=== PATIENT | male | born 1975 | race Caucasian/White ===

== ENCOUNTER 2021-05-10 21:54 | Inpatient (IN) | payer BC ==
[~2021-05-10] VITALS: Ht 180.3 cm; Wt 91.0 kg
[2021-05-10] MEDS ORDERED: MAGNESIUM/ALUMINUM HYDROXIDE/SIMETHICONE 30ML UDC PO STA (23:07)
[2021-05-10] MEDS ORDERED: ASPIRIN 81MG TABLET PO ONE (23:15)
[2021-05-10] MEDS ORDERED: NITROGLYCERIN 0.4MG TABLET SL SL PRN (23:15)
[2021-05-10 23:51] LABS: BASOPHILS % 0.8 % (0.0-2.0); HEMATOCRIT. 43.8 % (42.0-52.0); HEMOGLOBIN. 14.8 g/dL (14.0-18.0); LYMPHOCYTES % 34.4 % (20.0-50.0); MEAN CORPUSCULAR HEMOGLOBIN 30.7 pg (28.0-32.0); MEAN CORPUSCULAR VOLUME 90.8 fL (80.0-94.0); MEAN PLATELET VOLUME 7.3 fl (7.4-10.4); MONOCYTES % 9.3 % (2.0-8.0); NEUTROPHILS % 52.5 % (40.0-76.0); PLATELET 296 x1000/uL (130-400); RED BLOOD CELL COUNT 4.83 mill/uL (4.7-6.1); RED CELL DISTRIBUTION WIDTH 13.2 % (11.6-14.6)
[2021-05-10 23:56] LABS: CHLORIDE 104 mEq/L (98-107)
[2021-05-11] MEDS ORDERED: ONDANSETRON HCL 4MG/2ML INJ IV PRN (08:45)
[2021-05-11] MEDS ORDERED: ACETAMINOPHEN 325MG TABLET PO PRN (08:45)
[2021-05-11] MEDS ORDERED: ASPIRIN 81MG TABLET PO SCH (09:00)
[2021-05-11 14:30] VITALS: BP 116/72
== END 2021-05-11 14:30 | disposition home or self-care (01) | DRG 206 ==
LOC: ER 21:54 → MICUSO 05-11 02:25 → EDBEDREQ 05-11 02:26 → EDBEDREQTM 05-11 02:26
PROVIDERS: ADMIT Internal Medicine; ATTEND Internal Medicine
DX: M94.0 Chondrocostal junction syndrome [Tietze] (principal); Z60.2 Problems related to living alone; Z82.49 Family history of ischemic heart disease and other diseases of the circulatory system
CPT/HCPCS: 36415; 71045; 80053; 84443; 84484; 85025; 85379; 93306; 99285